=== PATIENT | female | born 1970 | race Caucasian/White ===

== ENCOUNTER 2019-12-24 11:40 | Emergency (ER) | payer MEDICAID ==
[~2019-12-24] VITALS: Ht 154.9 cm; Wt 73.0 kg
[2019-12-24] MEDS ORDERED: DIPHENHYDRAMINE 50MG/ML VIAL IM STA (11:49)
[2019-12-24] MEDS ORDERED: HALOPERIDOL LACTATE 5MG/ML VIAL IM STA (11:49)
[2019-12-24] MEDS ORDERED: LORAZEPAM 2MG/ML CPJ IM PRN (12:00)
[2019-12-24 12:25] LABS: BASOPHILS % 0.8 % (0.0-2.0); EOSINOPHILS % 0.6 % (0.0-5.0); HEMOGLOBIN. 13.5 g/dL (12.0-16.0); LYMPHOCYTES % 41.8 % (20.0-50.0); MEAN CORPUSCULAR HEMOGLOBIN 32.1 pg (28.0-32.0); MONOCYTES % 4.6 % (2.0-8.0); NEUTROPHILS % 52.2 % (40.0-76.0); PLATELET 277 x1000/uL (130-400); RED BLOOD CELL COUNT 4.19 mill/uL (4.2-5.4); RED CELL DISTRIBUTION WIDTH 14.2 % (11.6-14.6)
[2019-12-24 12:27] LABS: CHLORIDE 112 mEq/L (98-107)
[2019-12-24 12:30] LABS: HCG SCREEN NEGATIVE
[2019-12-24 12:31] LABS: ETHANOL BLOOD < 10 mg/dL
[2019-12-24] MEDS ORDERED: POVIDONE-IODINE 10% TOPICAL SOLN 240ML TOP ONE (12:45)
[2019-12-24] MEDS ORDERED: LIDOCAINE HCL/EPINEPHRINE 1%-EPI 1:100,000 30 ML VIAL INFIL ONE (12:45)
[2019-12-24] MEDS ORDERED: LIDOCAINE HCL/EPINEPHRINE 1%-EPI 1:100,000 20 ML VIAL INFIL NR (13:00)
[2019-12-24] MEDS ORDERED: SODIUM CHLORIDE 0.9% 1,000 ML IV ONE (14:15)
[2019-12-24] MEDS ORDERED: SODIUM CHLORIDE 0.9% 100 ML IV ONE (14:15)
[2019-12-24 14:45] LABS: CLARITY URINE CLOUDY (CLEAR); COLOR URINE DARK YELLOW (YELLOW); KETONES URINE 4+ (NEGATIVE); LEUKOCYTE ESTERASE URINE 1+ (NEGATIVE); NITRITE URINE NEGATIVE (NEGATIVE); OCCULT BLOOD URINE TRACE (NEGATIVE); PH URINE 5.5 (4.5-8.0); PROTEIN URINE 2+ (NEGATIVE); SPECIFIC GRAVITY URINE 1.028 (1.005-1.030)
[2019-12-24 15:03] LABS: *BARBITURATES SCREEN URINE NEGATIVE (NEGATIVE); *COCAINE SCREEN URINE NEGATIVE (NEGATIVE); METHADONE URINE SCREEN NEGATIVE (NEGATIVE)
[2019-12-24 15:04] LABS: CANNABINOID URINE SCREEN NEGATIVE (NEGATIVE); OPIATES URINE SCREEN NEGATIVE (NEGATIVE)
[2019-12-24 15:06] LABS: *AMPHETAMINES SCREEN URINE PRESUMTIVE POSITIVE (NEGATIVE); *BENZODIAZEPINES SCREEN URINE PRESUMTIVE POSITIVE (NEGATIVE); PHENCYCLIDINE URINE SCREEN PRESUMTIVE POSITIVE (NEGATIVE)
[2019-12-25 06:00] VITALS: BP 115/66
== END 2019-12-25 07:02 | disposition home or self-care (01) ==
LOC: ER 11:40
DX: F19.10 Other psychoactive substance abuse, uncomplicated (principal); F15.10 Other stimulant abuse, uncomplicated
CPT/HCPCS: 12002; 36415; 70450; 80053; 80305; 80320; 81003; 82962; 84703; 85025; 96372; 99285; A4246; J1200; J1630; J2060; J3490; J7030; J7050; G0480

== ENCOUNTER 2020-01-07 15:17 | Emergency (ER) | payer MEDICAID ==
[~2020-01-07] VITALS: Ht 154.9 cm; Wt 60.0 kg
[2020-01-07 15:32] VITALS: BP 151/90
== END 2020-01-07 17:34 | disposition home or self-care (01) ==
LOC: ER 15:17
DX: Z48.02 Encounter for removal of sutures (principal)
CPT/HCPCS: 99281

== ENCOUNTER 2020-04-23 21:47 | Emergency (ER) | payer MEDICAID ==
[~2020-04-23] VITALS: Ht 170.2 cm; Wt 75.0 kg
[2020-04-23] MEDS ORDERED: SODIUM CHLORIDE 0.9% 1,000 ML IV ONE (21:59)
[2020-04-23 22:49] LABS: BASOPHILS % 0.6 % (0.0-2.0); EOSINOPHILS % 0.8 % (0.0-5.0); HEMATOCRIT. 38.3 % (36.0-48.0); HEMOGLOBIN. 12.9 g/dL (12.0-16.0); LYMPHOCYTES % 13.4 % (20.0-50.0); MEAN CORPUSCULAR HEMOGLOBIN 32.4 pg (28.0-32.0); MEAN CORPUSCULAR VOLUME 95.7 fL (81.0-99.0); MEAN PLATELET VOLUME 9.1 fl (7.4-10.4); NEUTROPHILS % 80.2 % (40.0-76.0); PLATELET 239 x1000/uL (130-400)
[2020-04-23 22:53] LABS: CHLORIDE 115 mEq/L (98-107)
[2020-04-23 23:07] LABS: CANNABINOID URINE SCREEN NEGATIVE (NEGATIVE)
[2020-04-23 23:08] LABS: *BARBITURATES SCREEN URINE NEGATIVE (NEGATIVE); *COCAINE SCREEN URINE NEGATIVE (NEGATIVE); METHADONE URINE SCREEN NEGATIVE (NEGATIVE); OPIATES URINE SCREEN NEGATIVE (NEGATIVE)
[2020-04-23 23:15] LABS: *AMPHETAMINES SCREEN URINE PRESUMTIVE POSITIVE (NEGATIVE); *BENZODIAZEPINES SCREEN URINE PRESUMTIVE POSITIVE (NEGATIVE)
[2020-04-23 23:16] LABS: PHENCYCLIDINE URINE SCREEN PRESUMTIVE POSITIVE (NEGATIVE)
[2020-04-24] MEDS ORDERED: POTASSIUM CHLORIDE 20MEQ TABLET SR PO NR (02:45)
[2020-04-24 04:30] VITALS: BP 130/58
== END 2020-04-24 05:08 | disposition home or self-care (01) ==
LOC: ER 21:47
DX: G93.40 Encephalopathy, unspecified (principal); F15.10 Other stimulant abuse, uncomplicated; F16.10 Hallucinogen abuse, uncomplicated
CPT/HCPCS: 36415; 80053; 80305; 84484; 85025; 93005; 96360; 96361; 99285; J7030

== ENCOUNTER 2021-03-30 01:18 | Emergency (ER) | payer MEDICAID ==
[~2021-03-30] VITALS: Ht 160 cm; Wt 73.0 kg
[2021-03-30 02:40] VITALS: BP 130/79
== END 2021-03-30 02:58 | disposition home or self-care (01) ==
LOC: ER 01:18
DX: F16.10 Hallucinogen abuse, uncomplicated (principal); I44.7 Left bundle-branch block, unspecified
CPT/HCPCS: 93005; 99283